=== PATIENT | female | born 1995 | race Caucasian/White ===

== ENCOUNTER → 2021-05-02 | Outpatient (CLI) | payer BC ==
[2021-05-04 01:07] LABS: CHLAMYDIA TRACHOMATIS, NAA Negative (Negative)
== END | disposition home or self-care (01) ==
LOC: LAB SHORT 14:07
PROVIDERS: Physician Assistant
DX: R30.9 Painful micturition, unspecified (principal)
CPT/HCPCS: 87491; 87591

== ENCOUNTER 2022-06-19 03:20 | Emergency (ER) | payer BC, OTHER ==
[~2022-06-19] VITALS: Ht 162.6 cm; Wt 81.7 kg
[2022-06-19] MEDS ORDERED: EPIPEN0.3 MG/0.1 IM (05:45)
[2022-06-19 06:00] VITALS: BP 105/69
== END 2022-06-19 06:00 | disposition home or self-care (01) ==
LOC: ER 03:20
DX: T78.04XA Anaphylactic reaction due to fruits and vegetables, initial encounter (principal); Z91.018 Allergy to other foods
CPT/HCPCS: 96372; 99283-25; A9270; J0171; J1100

== ENCOUNTER 2022-10-14 12:04 | Emergency (ER) | payer OTHER ==
[~2022-10-14] VITALS: Ht 162.6 cm; Wt 89.8 kg
[~2022-10-14 12:04] MED LIST: EPIPEN0.3 MG/0.1 IM
[2022-10-14 12:18] VITALS: BP 121/87
[2022-10-14] MEDS ORDERED: MUPIROCIN1 G1 TOP (13:18)
== END 2022-10-14 13:32 | disposition home or self-care (01) ==
LOC: ER 12:04
DX: T24.212A Burn of second degree of left thigh, initial encounter (principal); T24.211A Burn of second degree of right thigh, initial encounter; T31.0 Burns involving less than 10% of body surface; Z23 Encounter for immunization; X12.XXXA Contact with other hot fluids, initial encounter; F17.290 Nicotine dependence, other tobacco product, uncomplicated
CPT/HCPCS: 90471; 90714; 90715; 96374-59; 99283-25; J1885

== ENCOUNTER 2024-05-11 18:43 | Emergency (ER) | payer BC ==
[~2024-05-11] VITALS: Ht 162.6 cm; Wt 102.1 kg
[~2024-05-11 18:43] MED LIST changes: +MUPIROCIN1 G1 TOP
[2024-05-11] MEDS ORDERED: DiphenhydrAMINE HCl 50 MG/ML 1ML Vial IV ONE (19:20)
[2024-05-11] MEDS ORDERED: Famotidine 10 MG/ML 2ML Vial IV ONE (19:20)
[2024-05-11] MEDS ORDERED: MethylPREDNISolone Sod Succ 125 MG Vial IV ONE (19:20)
[2024-05-11 20:11] VITALS: BP 121/72
== END 2024-05-11 20:27 | disposition home or self-care (01) ==
LOC: ER 18:43
DX: T78.1XXA Other adverse food reactions, not elsewhere classified, initial encounter (principal); L50.0 Allergic urticaria; J45.909 Unspecified asthma, uncomplicated; Z88.6 Allergy status to analgesic agent; Z91.018 Allergy to other foods; X58.XXXA Exposure to other specified factors, initial encounter
CPT/HCPCS: 96374; 96375; 99284-25; J1200; J2919

== ENCOUNTER → 2024-06-23 | Outpatient (CLI) | payer BC ==
[2024-07-07 14:36] LABS: HPV HIGH RISK BY TMA Not Detected; HPV SOURCE Cervical
== END | disposition home or self-care (01) ==
LOC: LAB 16:18 → LAB SHORT 16:18
PROVIDERS: Physician Assistant
DX: Z01.419 Encounter for gynecological examination (general) (routine) without abnormal findings (principal)
CPT/HCPCS: 87624; G0123